=== PATIENT | female | born 2000 | race Hispanic/Latino ===

== ENCOUNTER 2022-05-19 00:35 | Inpatient (IN) | payer SELFPAY ==
[~2022-05-19] VITALS: Ht 170.2 cm; Wt 97.1 kg
[2022-05-19 01:22] LABS: APPEARANCE,URINE CLEAR (CLEAR); BILIRUBIN,URINE NEGATIVE (NEGATIVE); COLOR,URINE YELLOW (YELLOW); GLUCOSE, URINE (UA) NEGATIVE (NEGATIVE); KETONES,URINE NEGATIVE (NEGATIVE); LEUKOCYTE ESTERASE ,URINE NEGATIVE (NEGATIVE); NITRATE,URINE NEGATIVE (NEGATIVE); OCCULT BLOOD,URINE NEGATIVE (NEGATIVE); PROTEIN,URINE NEGATIVE (NEGATIVE); UROBILINOGEN,URINE 0.2 mg/dL (0.2-1.0)
[2022-05-19 01:30] LABS: AMPHET/METH SCREEN,URINE NEGATIVE (NEGATIVE); BENZODIAZEPINES SCREEN,URINE NEGATIVE (NEGATIVE); CANNABINOID SCREEN,URINE NEGATIVE (NEGATIVE); COCAINE SCREEN,URINE NEGATIVE (NEGATIVE); PHENCYCLIDINE SCREEN,URINE NEGATIVE (NEGATIVE)
[2022-05-19] MEDS: LACTATED RINGERS 1000ML 1,000 ML IV SCH ×2 (02:23→04:19)
[2022-05-19] MEDS ORDERED: ACETAMINOPHEN 500 MG TABLET PO ONE (02:30)
[2022-05-19 08:17] LABS: MEAN CORPUSCULAR HEMOGLOBIN 30.9 pg (27.0-33.0); MEAN CORPUSCULAR HGB CONC 33.8 g/dL (32.0-36.0); MEAN CORPUSCULAR VOLUME 91.6 fL (79-99); RED BLOOD CELL COUNT(AUTO) 4.04 MIL/uL (4.00-5.50); RED CELL DISTRIBUTION WIDTH 14.6 % (11.0-15.5); WHITE BLOOD COUNT (AUTO) 9.4 K/uL (4.8-10.8)
[2022-05-19] MEDS ORDERED: DINOPROSTONE 10 MG VAGINAL SUPP VG SCH (08:30)
[2022-05-19] MEDS ORDERED: AMPICILLIN 2GM+NS 100ML 100 ML IV SCH (08:30)
[2022-05-19] MEDS ORDERED: PROMETHAZINE HCL 25 MG/ML 1ML AMPULE IM PRN (08:30)
[2022-05-19] MEDS ORDERED: MEPERIDINE-PF 50 MG/ML SYG IVP PRN (08:30)
[2022-05-19] MEDS ORDERED: LACTATED RINGERS 1000ML 1,000 ML IV PRN (08:30)
[2022-05-19] MEDS: AMPICILLIN 1GM+NS 50ML 50 ML IV SCH ×3 (13:03→23:49)
[2022-05-20] MEDS ORDERED: OXYTOCIN-LR 20 UNITS/1000 ML 1,000 ML IV SCH ×2 (04:00→09:00)
[2022-05-20] MEDS: AMPICILLIN 1GM+NS 50ML 50 ML IV SCH ×2 (04:01→20:30)
[2022-05-20] MEDS ORDERED: EPHEDRINE SULFATE 50 MG/ML AMPULE IVP PRN (05:30)
[2022-05-20] MEDS ORDERED: ROPIVACAINE 0.2% 100ML VIAL 100 ML EP PRN (05:30)
[2022-05-20] MEDS ORDERED: NALOXONE HCL 0.4 MG/1 ML ML IV PRN (05:30)
[2022-05-20] MEDS ORDERED: LACTATED RINGERS 500 ML 500 ML IV PRN (05:30)
[2022-05-20] MEDS: LACTATED RINGERS 1000ML 1,000 ML IV SCH (05:32)
[2022-05-20] MEDS ORDERED: METHYLERGONOVINE MALEATE 0.2 MG/1 ML ML ONE (06:38)
[2022-05-20] MEDS ORDERED: OXYTOCIN 10 UNIT/1ML 10ML VIAL IV ONE (09:00)
[2022-05-20] MEDS ORDERED: LANOLIN 30GM OINTMENT TP PRN (09:00)
[2022-05-20] MEDS ORDERED: ACETAMINOPHEN WITH CODEINE 1 TAB TAB PO PRN (09:00)
[2022-05-20] MEDS ORDERED: WITCH HAZEL 1 PAD TP PRN (09:00)
[2022-05-20] MEDS ORDERED: BENZOCAINE/LANOLIN/ALOE VERA 60 ML AEROSOL TP PRN (09:00)
[2022-05-20] MEDS ORDERED: ACETAMINOPHEN 325 MG TAB PO PRN (09:00)
[2022-05-20] MEDS ORDERED: METHYLERGONOVINE MALEATE 0.2 MG/1 ML ML IM SCH (09:00)
[2022-05-20] MEDS: DOCUSATE SODIUM 100 MG CAP PO SCH ×2 (09:07→20:23)
[2022-05-20] MEDS: IBUPROFEN 600 MG TABLET PO PRN (09:07)
[2022-05-20 09:40] LABS: RAPID PLASMA REAGIN NONREACTIVE (NONREACTIVE)
[2022-05-20 10:00] VITALS: BP 110/65
[2022-05-20 17:00] VITALS: BP 108/67
[2022-05-20 19:35] VITALS: BP 117/58
[2022-05-20 23:25] VITALS: BP 110/68
[2022-05-21] MEDS: LACTATED RINGERS 1000ML 1,000 ML IV SCH ×2 (01:00→05:15)
[2022-05-21 03:23] VITALS: BP 99/66
[2022-05-21 06:42] LABS: HEMATOCRIT 32.2 % (36-48); MEAN CORPUSCULAR HEMOGLOBIN 30.9 pg (27.0-33.0); MEAN CORPUSCULAR HGB CONC 33.5 g/dL (32.0-36.0); RED BLOOD CELL COUNT(AUTO) 3.5 MIL/uL (4.00-5.50); RED CELL DISTRIBUTION WIDTH 14.9 % (11.0-15.5); WHITE BLOOD COUNT (AUTO) 8.9 K/uL (4.8-10.8)
[2022-05-21 06:44] VITALS: BP 108/68
[2022-05-21] MEDS: DOCUSATE SODIUM 100 MG CAP PO SCH ×2 (08:31→20:01)
[2022-05-21 11:32] VITALS: BP 107/51
[2022-05-21] MEDS ORDERED: IBUP-2088 PO (11:45)
[2022-05-21 16:18] VITALS: BP 100/54
[2022-05-21 19:00] VITALS: BP 112/62
[2022-05-21 19:09] LABS: OPIATES SCREEN URINE Negative ng/mL (Cutoff=300)
[2022-05-21] MEDS: IBUPROFEN 600 MG TABLET PO PRN (20:02)
[2022-05-21 22:46] VITALS: BP 113/69
[2022-05-22 02:50] VITALS: BP 104/58
[2022-05-22 07:20] VITALS: BP 111/66
[2022-05-22] MEDS: DOCUSATE SODIUM 100 MG CAP PO SCH (09:19)
[2022-05-22] MEDS: IBUPROFEN 600 MG TABLET PO PRN (09:23)
[2022-05-22 12:00] VITALS: BP 116/61
== END 2022-05-22 12:25 | disposition home or self-care (01) | DRG 807 ==
LOC: EDH 00:35 → OBSVTOIN 00:36 → LDH 00:36 → WSH 05-20 10:07
PROVIDERS: ADMIT Obstetrics & Gynecology; ATTEND Obstetrics & Gynecology
PROC: 10E0XZZ Delivery of Products of Conception, External Approach (ICD-10-PCS; principal; 2022-05-20)
DX: O80 Encounter for full-term uncomplicated delivery (principal); Z37.0 Single live birth; Z3A.37 37 weeks gestation of pregnancy
CPT/HCPCS: 36415; 76805; 80305; 81003; 85027; 86592; 86701; 86850; 86900; 86901; 87340; 87390; 96360; 96361; G0378; J0290; J2175; J2210; J2550; J2590; J7120